=== PATIENT | male | born 1935 | race Caucasian/White ===

== ENCOUNTER → 2016-04-24 | Outpatient (CLI) | payer MEDICARE, OTHER ==
[~2016-04-24] MED LIST: ECOT81TA2; [UNRECOGNIZED DRUG - CODE]
[2016-04-24 09:23] LABS: HEMATOCRIT 47.9 % (39.0-51.0); MEAN CELL VOLUME 92.5 FL (80.0-100.0); MEAN CORPUSCULAR HEMOGLOBIN 30.9 PG (27.0-34.0); MEAN CORPUSCULAR HGB CONC 33.4 % (32.0-36.0); PLATELET COUNT 191 TH/MM3 (150-450); RED BLOOD COUNT 5.18 MIL/MM3 (4.50-5.90); RED CELL DISTRIBUTION WIDTH 13.5 % (11.6-17.2); REVIEW FLAG FINAL
[2016-04-24 09:57] LABS: ALKALINE PHOSPHATASE 84 U/L (45-117); ALT (GPT) 23 U/L (12-78); AMYLASE 79 U/L (25-115); ANION GAP 6 MEQ/L (5-15); AST (GOT) 22 U/L (15-37); BICARBONATE 33.8 MEQ/L (21.0-32.0); BLOOD UREA NITROGEN 17 MG/DL (7-18); CHLORIDE 102 MEQ/L (98-107); GLOMERULAR FILTRATION RATE 63 ML/MIN (>89); GLUCOSE,FASTING 90 MG/DL (74-99); HDL CHOLESTEROL 55.6 MG/DL (40.0-60.0); LDL CHOLESTEROL 121 MG/DL (0-99); LDL CHOLESTEROL DIRECT 129 MG/DL (0-99); SODIUM (NA) 142 MEQ/L (136-145); TOTAL BILIRUBIN ADULT 0.6 MG/DL (0.2-1.0)
[2016-04-24 12:36] LABS: HEMOGLOBIN A1a 1.2 %; HEMOGLOBIN A1b 1.7 %; HEMOGLOBIN Ao 83.7 %; HEMOGLOBIN F 0.3 %; HEMOGLOBIN P3 3.9 %
== END ==
LOC: PLAB 07:09
PROVIDERS: ATTEND Family Medicine
DX: I25.10 Atherosclerotic heart disease of native coronary artery without angina pectoris (principal); E11.9 Type 2 diabetes mellitus without complications; R53.83 Other fatigue; E78.4 Other hyperlipidemia; I10 Essential (primary) hypertension; R10.10 Upper abdominal pain, unspecified
CPT/HCPCS: 36415; 80053; 80061; 82150; 83036; 83690; 83721; 84443; 85027

== ENCOUNTER → 2016-10-15 | Outpatient (CLI) | payer MEDICARE, OTHER ==
[2016-10-15 09:06] LABS: HEMATOCRIT 51.4 % (39.0-51.0); MEAN CELL VOLUME 94.2 FL (80.0-100.0); MEAN CORPUSCULAR HEMOGLOBIN 31.7 PG (27.0-34.0); MEAN CORPUSCULAR HGB CONC 33.6 % (32.0-36.0); PLATELET COUNT 170 TH/MM3 (150-450); RED BLOOD COUNT 5.45 MIL/MM3 (4.50-5.90); RED CELL DISTRIBUTION WIDTH 14.1 % (11.6-17.2); REVIEW FLAG FINAL; WHITE BLOOD COUNT 4.9 TH/MM3 (4.0-11.0)
[2016-10-15 09:39] LABS: ANION GAP 3 MEQ/L (5-15); AST (GOT) 32 U/L (15-37); BICARBONATE 34.7 MEQ/L (21.0-32.0); BLOOD UREA NITROGEN 12 MG/DL (7-18); CHLORIDE 102 MEQ/L (98-107); GLOMERULAR FILTRATION RATE 64 ML/MIN (>89); POTASSIUM 4.8 MEQ/L (3.5-5.1); SODIUM (NA) 140 MEQ/L (136-145)
[2016-10-15 09:42] LABS: ALKALINE PHOSPHATASE 87 U/L (45-117); GLUCOSE,FASTING 85 MG/DL (74-99)
[2016-10-15 09:49] LABS: ALT (GPT) 32 U/L (12-78); HDL CHOLESTEROL 64.1 MG/DL (40.0-60.0); LDL CHOLESTEROL 96 MG/DL (0-99); LDL CHOLESTEROL DIRECT 102 MG/DL (0-99); TOTAL BILIRUBIN ADULT 0.8 MG/DL (0.2-1.0)
[2016-10-15 17:58] LABS: HEMOGLOBIN A1a 1.1 %; HEMOGLOBIN A1b 1.6 %; HEMOGLOBIN Ao 84.6 %; HEMOGLOBIN F 0.3 %; HEMOGLOBIN LA1C 1.9 %; HEMOGLOBIN P3 3.7 %
== END ==
LOC: PLAB 07:21
PROVIDERS: ATTEND Family Medicine
DX: I25.10 Atherosclerotic heart disease of native coronary artery without angina pectoris (principal); E11.9 Type 2 diabetes mellitus without complications; E78.4 Other hyperlipidemia
CPT/HCPCS: 36415; 80053; 80061; 83036; 83721; 85027

== ENCOUNTER → 2017-04-10 | Outpatient (CLI) | payer MEDICARE, OTHER ==
[2017-04-10 09:43] LABS: HEMOGLOBIN 15.5 GM/DL (13.0-17.0); MEAN CELL VOLUME 93.5 FL (80.0-100.0); MEAN CORPUSCULAR HEMOGLOBIN 31.5 PG (27.0-34.0); MEAN CORPUSCULAR HGB CONC 33.7 % (32.0-36.0); MEAN PLATELET VOLUME 8.1 FL (7.0-11.0); PLATELET COUNT 240 TH/MM3 (150-450); RED BLOOD COUNT 4.92 MIL/MM3 (4.50-5.90); RED CELL DISTRIBUTION WIDTH 13.2 % (11.6-17.2); WHITE BLOOD COUNT 5.4 TH/MM3 (4.0-11.0)
[2017-04-10 09:52] LABS: ALBUMIN 3.3 GM/DL (3.4-5.0); AST (GOT) 28 U/L (15-37); BICARBONATE 32.1 MEQ/L (21.0-32.0); BLOOD UREA NITROGEN 11 MG/DL (7-18); CALCIUM 9.1 MG/DL (8.5-10.1); CHLORIDE 103 MEQ/L (98-107); CREATININE 1.03 MG/DL (0.60-1.30); GLOMERULAR FILTRATION RATE 70 ML/MIN (>89); GLUCOSE,FASTING 100 MG/DL (74-99); SODIUM (NA) 140 MEQ/L (136-145)
[2017-04-10 09:53] LABS: ALT (GPT) 30 U/L (12-78); CHOLESTEROL 169 MG/DL (120-200); TRIGLYCERIDES 84 MG/DL (42-150)
[2017-04-10 09:58] LABS: ALKALINE PHOSPHATASE 100 U/L (45-117); CHOLESTEROL/ HDL RATIO 3.56 RATIO; HDL CHOLESTEROL 47.4 MG/DL (40.0-60.0); LDL CHOLESTEROL 105 MG/DL (0-99); LDL CHOLESTEROL DIRECT 107 MG/DL (0-99); TOTAL BILIRUBIN ADULT 0.8 MG/DL (0.2-1.0); TOTAL PROTEIN 7.9 GM/DL (6.4-8.2)
[2017-04-10 16:29] LABS: HEMOGLOBIN A1C 6.5 % (4.3-6.0)
== END ==
LOC: PLAB 06:57
PROVIDERS: ATTEND Family Medicine
DX: E11.9 Type 2 diabetes mellitus without complications (principal); E78.2 Mixed hyperlipidemia; I10 Essential (primary) hypertension
CPT/HCPCS: 36415; 80053; 80061; 83036; 83721; 85027

== ENCOUNTER → 2017-07-11 | Outpatient (CLI) | payer MEDICARE, OTHER ==
[2017-07-11 13:19] LABS: HEMATOCRIT 48.4 % (39.0-51.0); HEMOGLOBIN 16.2 GM/DL (13.0-17.0); MEAN CELL VOLUME 93.5 FL (80.0-100.0); MEAN CORPUSCULAR HEMOGLOBIN 31.4 PG (27.0-34.0); MEAN CORPUSCULAR HGB CONC 33.5 % (32.0-36.0); MEAN PLATELET VOLUME 8.4 FL (7.0-11.0); PLATELET COUNT 202 TH/MM3 (150-450); RED BLOOD COUNT 5.17 MIL/MM3 (4.50-5.90); RED CELL DISTRIBUTION WIDTH 14.6 % (11.6-17.2); WHITE BLOOD COUNT 5.2 TH/MM3 (4.0-11.0)
[2017-07-11 13:26] LABS: ALBUMIN 3.8 GM/DL (3.4-5.0); AST (GOT) 27 U/L (15-37); BICARBONATE 30.2 MEQ/L (21.0-32.0); BLOOD UREA NITROGEN 13 MG/DL (7-18); CALCIUM 9.4 MG/DL (8.5-10.1); CHLORIDE 103 MEQ/L (98-107); CREATININE 1.24 MG/DL (0.60-1.30); GLOMERULAR FILTRATION RATE 56 ML/MIN (>89); GLUCOSE,FASTING 101 MG/DL (74-99); SODIUM (NA) 139 MEQ/L (136-145)
[2017-07-11 13:27] LABS: ALT (GPT) 28 U/L (12-78); CHOLESTEROL 192 MG/DL (120-200); TRIGLYCERIDES 78 MG/DL (42-150)
[2017-07-11 13:29] LABS: ALKALINE PHOSPHATASE 89 U/L (45-117); CHOLESTEROL/ HDL RATIO 3.44 RATIO; HDL CHOLESTEROL 55.8 MG/DL (40.0-60.0); LDL CHOLESTEROL 121 MG/DL (0-99); LDL CHOLESTEROL DIRECT 137 MG/DL (0-99)
[2017-07-11 18:47] LABS: HEMOGLOBIN A1C 5.9 % (4.3-6.0)
== END ==
LOC: PLAB 09:05
PROVIDERS: ATTEND Family Medicine
DX: I25.10 Atherosclerotic heart disease of native coronary artery without angina pectoris (principal); E11.9 Type 2 diabetes mellitus without complications; E78.5 Hyperlipidemia, unspecified; I10 Essential (primary) hypertension
CPT/HCPCS: 36415; 80053; 80061; 83036; 83721; 85027